=== PATIENT | male | born 1970 | race Caucasian/White ===

== ENCOUNTER 2020-11-20 05:54 | Day surgery (SDC) | payer BC ==
[2020-11-20] MEDS ORDERED: Lactated Ringers 1,000 ML IV SCH (06:00)
[2020-11-20] MEDS ORDERED: Povidone-Iodine 10% Soln 118.25 ML Bottle ONE (06:37)
[2020-11-20] MEDS ORDERED: Nozin Nasal Sanitizer NASBOTH SCH (07:00)
[2020-11-20] MEDS ORDERED: fentaNYL 100 MCG/2 ML SDV ONE (07:24)
[2020-11-20] MEDS ORDERED: Propofol 200 MG/20 ML SDV ONE ×3 (07:24→09:08)
[2020-11-20] MEDS ORDERED: Midazolam 1 MG/ML 2 ML SDV ONE ×2 (07:24→07:59)
[2020-11-20] MEDS ORDERED: ceFAZolin 2 GM in Premix Bag 1 BAG IV ONE (07:30)
[2020-11-20] MEDS ORDERED: Tranexamic Acid 1,000 MG in Sodium Chloride 0.9% 50 ML IV ONE (07:45)
[2020-11-20] MEDS ORDERED: Lactated Ringers 1,000 ML ONE (08:12)
[2020-11-20] MEDS ORDERED: Acetaminophen/HYDROcodone 325-5 MG Tab PO PRN (09:50)
[2020-11-20] MEDS ORDERED: Morphine 2 MG/ML SYRINGE SUBCUT PRN (09:50)
[2020-11-20] MEDS ORDERED: Acetaminophen 325 MG Tab PO PRN (09:50)
[2020-11-20] MEDS ORDERED: Magnesium Hydroxide 400 MG/5 ML Susp 30 ML Cup PO PRN (09:50)
[2020-11-20] MEDS ORDERED: Ondansetron 4 MG/2 ML SDV IVPUSH PRN (09:50)
[2020-11-20] MEDS ORDERED: ceFAZolin 1 GM in Sodium Chloride 0.9% 50 ML IV SCH (10:00)
[2020-11-20] MEDS ORDERED: Sodium Chloride 0.9% 1,000 ML IV SCH (10:00)
[2020-11-20] MEDS ORDERED: Tranexamic Acid 1,000 MG in Sodium Chloride 0.9% 50 ML IV SCH (11:30)
[2020-11-20] MEDS: Acetaminophen/oxyCODONE 325-5 MG Tab PO PRN ×3 (13:13→19:29)
--- NOTE | 2020-11-20 14:33 | CR ---
Pelvis 1V or 2V CLINICAL HISTORY: Right hip arthroplasty FINDINGS: Single view the pelvis shows a total right hip arthroplasty. Components appear well seated is seen. There is severe osteophytic change in the left hip. There are some degenerative changes in the lower lumbar spine and SI joints. IMPRESSION: Status post total right hip arthroplasty
[2020-11-20] MEDS: Ketorolac 30 MG/ML SDV IVPUSH SCH ×2 (14:40→20:37)
[2020-11-20] MEDS: ceFAZolin 1 GM in Premix Bag 1 BAG IV SCH (16:23)
[2020-11-20] MEDS: Nozin Nasal Sanitizer NASBOTH SCH (20:34)
[2020-11-21] MEDS: ceFAZolin 1 GM in Premix Bag 1 BAG IV SCH ×2 (00:05→08:33)
[2020-11-21] MEDS: Ketorolac 30 MG/ML SDV IVPUSH SCH ×2 (03:46→08:35)
[2020-11-21] MEDS: Nozin Nasal Sanitizer NASBOTH SCH (08:34)
[2020-11-21] MEDS ORDERED: Docusate Sodium 100 MG Cap PO SCH (09:00)
[2020-11-21] MEDS ORDERED: Enoxaparin 30 MG/0.3 ML Syringe SUBCUT SCH (09:00)
--- NOTE | 2020-11-21 12:38 | PCM.DCSUM1 ---
Discharge Summary - Hospital Course Brief History: Patient is a pleasant 50 y/o male with bilateral hip osteoarthritis and CAM deformities, more severe in right than left. He failed conservative management and elected to proceed with R total hip arthroplasty. Diagnosis: Stroke: No Modified Evans Scale: No Symptoms at All Modified Regi Scale Score: 0 - Discharge Data Discharge Date: 11/21/20 Discharge Disposition: Home, Self-Care 01 Condition: Good - Referral to Home Health Date of Face to Face Encounter: 11/21/20 Reason for Homebound Status: Ambulating well independently Primary Care Physician: Tigre Solares MD - Patient Summary/Data Operative Procedure(s) Performed: Right total hip arthroplasty Consults: Consultations 11/20/20 09:50 Consult to Case Management/Floral Clerk [CONS] Routine Comment: Physician Instructions: Discharge placement post hip surgery Service(s) to be Consulted: Case Management PT Evaluation and Treatment [CONS] Routine Please Evaluate and Treat. PT Reason for Consult: Ambulation Discharge Disposition: Home w Home Health Special Instructions: posterior hip precautions, WBAT This query below is only for informational purposes and is not editable. PT Evaluation and Treatment [CONS] Routine Please Evaluate and Treat. PT Reason for Consult: Post op Ortho Surgery Hip Pending Discharge: Yes, 2- -3 days Special Instructions: Schedule first outpatient P.T. appointment 3 - 5 days post discharge This query below is only for informational purposes and is not editable. 11/20/20 09:54 OT Evaluation and Treatment [CONS] Routine Please Evaluate and Treat. OT Reason for Consult: ADL's Special Instructions: Status post Hip Surgery This query below is only for informational purposes and is not editable. 11/21/20 08:15 Consult to Recreation Therapist [CONS] Routine Comment: Physician Instructions: Quantity: Reason for Consult: Elevated Glucose Special Instructions: Patient s/p Right Total Hip Arthroplasty with elevated glucose (fasting 251 pre-op and 245 post-op). Patient has not seen PCP in 1+ years. Please help with diabetes education referral. Thank you! Hospital Course: Patient is a pleasant 50 y/o male, s/p R total hip arthroplasty, POD#1. Patient tolerated surgery well. Patients hospital stay has been relatively uncomplicat ed. Pain has been well managed in the post-operative period. Tolerating regular diet well with no nausea/emesis. Worked with physical therapy the afternoon of surgery and has been doing very well with ambulation. Ambulated 75 ft with FWW five times yesterday. Ambulated multiple times down hallway this morning without FWW and is very stable on his feet. Posterior hip precautions were reviewed with patient. Ortiz d/c on POD#1, IV saline locked POD#1. Dressing change by orthopedic provider on POD#1. Patient did have elevated glucose of 251 pre-operatively and was 245 on POD#1 re-check. Referral placed for record changer assembler to set up diabetes education with patient. Patient did receive diabetes education prior to discharge and is going home with appropriate AccuCheck materials for glucose monitoring. Exam: Incision intact and healing well. Dried blood on steri strips. New dressing applied to R hip; dry and intact. No surrounding erythema, warmth to touch, nor active drainage of R hip. Mild ecchymosis present on R hip. Good capillary refill to R LE. Sensation intact. - Patient Instructions Diet: Diabetic Diet Activity: As Tolerated, Full Weight Bearing Driving: Do Not Drive Showering/Bathing: Shower in AM Wound/Incision Care: Keep Operative Site/Wound Site Clean and Dry Notify Provider of: Fever, Increased Pain, Swelling and Redness, Drainage, Nausea and/or Vomiting Other/Special Instructions: Prescription sent for pain medication ([place] 5mg- 325mg dispense #30). Take 1 Aspirin BID for DVT/VTE prophlyaxis until 2 week orthopedic follow up apt. Continue Nozin Nasal [place] - Discharge Plan *PRESCRIPTION DRUG MONITORING PROGRAM REVIEWED*: Yes *COPY OF PRESCRIPTION DRUG MONITORING REPORT IN PATIENT KACEY: No Prescriptions/Med Rec: Acetaminophen/HYDROcodone [[place] 325-5 MG] 1 - 2 tab PO Q6H PRN 7 Days #30 tab PRN Reason: Pain Home Medications: Home Meds Acetaminophen/HYDROcodone [[place] 325-5 MG] 1 - 2 tab PO Q6H PRN 7 Days #30 tab 11/21/20 [Rx] Aspirin 325 mg PO BID 11/21/20 [History] Oxygen Therapy Mode: Room Air Referrals: Libia Obrien RN [Registered Nurse] - 12/05/20 10:30 am Jj Subramanian MD [Physician] - 12/05/20 9:45 am (Please arrive 15 minutes early to register for your appointment.) - Discharge Summary/Plan Comment DC Time >30 min.: No Discharge Summary/Plan Comment: -Anticipate discharge to home today with orders for outpatient physical therapy -Prescription sent for 1 week supply of pain medication: 5mg-325 mg [place] q6 hrs prn for pain, dispense #30 -Education provided to patient to take 1 aspirin BID for DVT/VTE prophylaxis until seen for 2 week follow up apt -Continue Nozin Nasal spray -Was seen by record changer assembler and received diabetes education prior to discharge. Is going home with appropriate AccuCheck materials for glucose monitoring. Apt scheduled with Libia Obrien on 12/05/20 for continued diabetic care -Patient to follow up with orthopedic clinic in 2 weeks; encouraged to call clinic sooner if any concerns or questions arise prior to scheduled apt -Patient agreeable and expressed understanding to plan above - General Info Date of Service: 11/21/20 Functional Status: Reports: Pain Controlled, Tolerating Diet, Ambulating, Urinating - Review of Systems General: Reports: No Symptoms HEENT: Reports: No Symptoms Pulmonary: Reports: No Symptoms Cardiovascular: Reports: No Symptoms Gastrointestinal: Reports: No Symptoms Genitourinary: Reports: No Symptoms Musculoskeletal: Reports: Joint Pain (R hip) Skin: Reports: No Symptoms Neurological: Reports: No Symptoms - Patient Data Vitals - Most Recent: Last Vital Signs Temp 98.2 F 11/21/20 10:39 Pulse 87 11/21/20 10:39 Resp 18 11/21/20 10:39 BP 130/70 11/21/20 10:39 Pulse Ox 96 11/21/20 10:39 Weight - Most Recent: 228 lb I&O - Last 24 hours: Intake & Output 11/20/20 11/21/20 11/21/20 22:59 06:59 14:59 Intake Total 240 Output Total 2049 Balance -2049 240 Lab Results - Last 24 hrs: Laboratory Results - last 24 hr 11/21/20 11/21/20 Range/Units 04:10 04:10 WBC 7.9 (4.5-11.0) K/uL RBC 4.43 (4.30-5.90) M/uL Hgb 13.3 D (12.0-15.0) g/dL Hct 38.6 L (40.0-54.0) % MCV 87 (80-98) fL MCH 30 (27-31) pg MCHC 35 (32-36) % Plt Count 199 (150-400) K/uL Glucose 245 H (74-106) mg/dL Med Orders - Current: Current Medications Acetaminophen (Tylenol) 650 mg PO Q4H PRN PRN Reason: Pain/Fever Hydrocodone Bitart/Acetaminophen ([place] 325-5 Mg) 1 tab PO Q4H PRN PRN Reason: Pain Last Admin: 11/20/20 11:12 Dose: 1 tab Documented by: Bandage/Support Products ( Nasal Fire Protection Designer) 1 applic NASBOTH BID [facility] Stop: 11/26/20 21:01 Last Admin: 11/21/20 08:34 Dose: 1 applic Documented by: Docusate Sodium (Colace) 100 mg PO DAILY [facility] Last Admin: 11/21/20 08:35 Dose: 100 mg Documented by: Enoxaparin Sodium (Lovenox) 30 mg SUBCUT DAILY [facility] Last Admin: 11/21/20 08:34 Dose: 30 mg Documented by: Ketorolac Tromethamine (Toradol) 30 mg IVPUSH Q6H [facility] Stop: 11/22/20 09:01 Last Admin: 11/21/20 08:35 Dose: 30 mg Documented by: Magnesium Hydroxide (Milk Of Magnesia) 30 ml PO Q6H PRN PRN Reason: Stool Softener Morphine Sulfate (Morphine) 1 mg SUBCUT Q1H PRN PRN Reason: Pain Ondansetron HCl (Zofran) 4 mg IVPUSH Q6H PRN PRN Reason: Nausea/Vomiting Oxycodone/Acetaminophen (Percocet 325-5 Mg) 0 tab PO Q4H PRN PRN Reason: Pain (severe 7-10) Last Admin: 11/20/20 19:29 Dose: 2 tab Documented by: Discontinued Medications Bandage/Support Products ( Nasal Fire Protection Designer) 1 applic NASBOTH BID [facility] Last Admin: 11/20/20 06:22 Dose: 1 applic Documented by: Fentanyl (Sublimaze) Confirm Administered Dose 100 mcg .ROUTE .STK-MED ONE Stop: 11/20/20 07:25 Cefazolin Sodium/Dextrose 2 gm (/ Premix) 50 mls @ 100 mls/hr IV ONETIME ONE Stop: 11/20/20 07:59 Last Admin: 11/20/20 07:40 Dose: 100 mls/hr Documented by: Lactated Ringer's (Ringers, Lactated) 1,000 mls @ 500 mls/hr IV ASDIRECTED [facility] Last Admin: 11/20/20 06:22 Dose: 500 mls/hr Documented by: Tranexamic Acid 1,000 mg/ (Sodium Chloride) 60 mls @ 240 mls/hr IV ONETIME ONE Stop: 11/20/20 07:59 Last Admin: 11/20/20 08:02 Dose: 240 mls/hr Documented by: Tranexamic Acid 1,000 mg/ (Sodium Chloride) 60 mls @ 240 mls/hr IV ASDIRECTED [facility] Stop: 11/20/20 16:00 Lactated Ringer's (Ringers, Lactated) Confirm Administered Dose 1,000 mls @ as directed .ROUTE .STK-MED ONE Stop: 11/20/20 08:13 Sodium Chloride (Normal Saline) 1,000 mls @ 125 [facility]ls[facility] [place] Last Admin: 11/20/20 13:49 Dose: 125 mls/hr Documented by: Cefazolin Sodium/Dextrose 1 gm (/ Premix) 50 mls @ 100 mls/hr IV Q8H [facility] Stop: 11/21/20 08:29 Last Admin: 11/21/20 08:33 Dose: 100 mls/hr Documented by: Midazolam HCl (Versed 1 Mg/Ml) Confirm Administered Dose 2 mg .ROUTE .STK-MED ONE Stop: 11/20/20 07:25 Midazolam HCl (Versed 1 Mg/Ml) Confirm Administered Dose 2 mg .ROUTE .STK-MED ONE Stop: 11/20/20 08:00 Povidone Iodine (Betadine 10% Soln) Confirm Administered Dose 1 ml .ROUTE .STK- MED ONE Stop: 11/20/20 06:38 Last Admin: 11/20/20 08:34 Dose: 1 ml Documented by: Propofol (Diprivan 20 Ml) Confirm Administered Dose 200 mg .ROUTE .STK-MED ONE Stop: 11/20/20 07:25 Propofol (Diprivan 20 Ml) Confirm Administered Dose 200 mg .ROUTE .STK-MED ONE Stop: 11/20/20 08:20 Propofol (Diprivan 20 Ml) Confirm Administered Dose 200 mg .ROUTE .STK-MED ONE Stop: 11/20/20 09:09 - Exam General: Reports: Alert, Oriented, Cooperative, No Acute Distress Extremities: Leg Pain (right ) Skin: Reports: Dry, Intact Wound/Incisions: Reports: Healing Well, Dressing Dry and Intact, No Drainage Neurological: Reports: No New Focal Deficit Psy/Mental Status: Reports: Alert, Normal Affect, Normal Mood
--- NOTE | 2020-11-30 21:39 | OR ---
DATE OF PROCEDURE: 11/20/2020 SURGEON: Jj Subramanian MD PREOPERATIVE DIAGNOSIS: Osteoarthritis, right hip. POSTOPERATIVE DIAGNOSIS: End-stage osteoarthritis, right hip. PROCEDURE: Right total hip arthroplasty using Octavio M/L Taper stem size 9 standard, 58-mm Trabecular Metal cup, and a 32-mm +0 ceramic head. WAD COMPRESSOR OPERATOR ADJUSTER: EUFEMIA Dominique. ANESTHESIA: Spinal with sedation. INDICATIONS: Raghavendra is a 50-year-old gentleman with a history of progressive pain and limited range of motion of his right hip over the past year. He is having increasing difficulty to complete activities of daily living. X-rays showed end-stage osteoarthritis. Now presents for right total hip arthroplasty. Risks, benefits, potential complications of the procedure were discussed. Assistance of a physician home based assistant utilized throughout the case for retraction, positioning of the leg during instrumentation and reduction. PROCEDURE IN DETAIL: After adequate anesthesia was obtained, patient was placed in the lateral decubitus position and secured with the hip positioner. The right hip and leg were prepped and draped in a sterile fashion. A longitudinal incision was made over the greater trochanter, carried down through the subcutaneous tissues and hemostasis obtained with electrocautery. Tensor fascia was divided in line with its fibers and a Charnley retractor was placed. The patient had essentially no internal rotation of the hip, and short external rotators were taken off the greater trochanter posteriorly. The capsule was then divided around the femoral neck and split in a T-fashion. This eventually allowed rotation of the hip and the hip to be dislocated with some difficulty. Retractor was placed about the femoral neck and a femoral neck cut was then made. Retractors were placed around the acetabulum. Soft tissues removed from the central portion. Minimal remaining labrum was present. Fairly significant osteophytes around the periphery of the acetabulum were present. Acetabulum was sequentially reamed, medializing the cup to the inner wall. It was taken up to size 58 reamer with excellent subchondral bone. A 58-mm cup was then tapped into position and additional fixation obtained with a single acetabular screw. This had excellent purchase. The acetabular liner was then tapped into position. Some of the peripheral osteophytes were removed during reaming and additional osteophytes from the superior and posterior aspect removed with an osteotome. Attention was returned to the femur. Box osteotome was used to remove the lateral femoral neck cortex. A hand awl was placed down the canal. Canal was then sequentially broached to a size 9 standard. A trial reduction was made with -3.5 neck length, which had a tendency to sublux with adduction, internal rotation with the hip in flexion. A 0 neck length provided stability. The trial was removed. The final stem was tapped into position and again trial reductions were made with 0 neck length again being slightly tight but providing very good stability and a -3.5 neck length showing just a slight tendency for instability with flexion, adduction, and internal rotation. The 0 neck length was chosen. Final femoral head was tapped into position and the hip was reduced. Wound was irrigated with pulse lavage and was followed by dilute Betadine solution which was left in place for 2- 1/2 minutes and then irrigated with a pulse lavage once again. Piriformis was reattached to the greater trochanter with #2 Ethibond. The capsule could not be closed as it was significantly retracted. The tensor fascia was closed in a running locking fashion with #2 Ethibond. Skin was closed with 2-0 Vicryl and a running 3-0 Monocryl. Steri- Strips were applied. Sterile dressing was then placed. The patient tolerated procedure well. There were no complications. Taken from the operating room in stable condition. Jj Subramanian MD /[id number] MTDD
== END 2020-11-21 14:22 | disposition home or self-care (01) ==
LOC: JP.SDS 05:54 → JP.MS 09:50 → JP.SDS 11-21 14:22
PROVIDERS: ATTEND Specialist
DX: M16.11 Unilateral primary osteoarthritis, right hip (principal); E66.9 Obesity, unspecified; Z68.31 Body mass index [BMI] 31.0-31.9, adult
CPT/HCPCS: 36415; 72170; 72170-26; 80053; 82947; 85027; 97110-GP; 97116-GP; 97140-GP; 97161-GP; 97165-GO; 97535-GP; A9270-GY; C1713; C1776; J0690; J1650; J1885; J2250; J2704; J3010; J7030; J7120

== ENCOUNTER 2021-01-05 07:49 | Day surgery (SDC) | payer BC ==
[2021-01-05] MEDS ORDERED: Propofol 200 MG/20 ML SDV ONE ×2 (08:30→10:28)
[2021-01-05] MEDS ORDERED: Dextrose 5%-Lactated Ringers 1,000 ML IV SCH (08:30)
[2021-01-05] MEDS ORDERED: fentaNYL 100 MCG/2 ML SDV ONE (08:31)
[2021-01-05] MEDS ORDERED: Midazolam 1 MG/ML 2 ML SDV ONE (08:31)
--- NOTE | 2021-01-08 17:58 | OR ---
DATE OF PROCEDURE: 01/05/2021 SURGEON: Huey Bo MD PREOPERATIVE DIAGNOSIS: Indication for screening colonoscopy. POSTOPERATIVE DIAGNOSIS: Limited left colonic diverticulosis. OPERATIVE PROCEDURE: Flexible colonoscopy. ANESTHESIA: IV sedation. INDICATIONS FOR PROCEDURE: A 50-year-old male presenting for initial colonoscopy, has no family or personal history of colon polyps or neoplasia. The plan is to proceed with colonoscopy with biopsies and/or polypectomy as indicated. Potential risks including bleeding and perforation were discussed, and the patient wishes to proceed. DETAILS OF PROCEDURE: The patient was taken to the operating room and placed in a left lateral decubitus position. IV sedation was administered after which the initial digital rectal exam was performed and was unremarkable. Colonoscope was then passed to the level of the cecum, and the prep was quite good, only small amount of liquid stool was present. The patient had some scattered left colonic diverticula, which were otherwise uncomplicated. Apart from that, there were no areas of colitis, and no polyps or other signs of neoplasia. Scope was then withdrawn and the above findings reconfirmed, and the procedure was then concluded. Given the present findings and lack of family or personal history of colonic neoplasia, next colonoscopy would be recommended in 10 years. Huey Bo MD /[id number]
== END 2021-01-05 11:50 | disposition home or self-care (01) ==
LOC: JP.SDS 07:49
PROVIDERS: ATTEND Surgery
DX: Z12.11 Encounter for screening for malignant neoplasm of colon (principal); K57.30 Diverticulosis of large intestine without perforation or abscess without bleeding
CPT/HCPCS: 45378; J2250; J2704; J3010; J7121